=== PATIENT | female | born 1950 | race Caucasian/White ===

== ENCOUNTER 2017-06-26 14:43 | Emergency (ER) | payer OTHER, SELFPAY ==
[~2017-06-26] VITALS: Ht 165.1 cm; Wt 64.9 kg
[2017-06-26] MEDS ORDERED: CHEMO MED (15:27)
[2017-06-26] MEDS ORDERED: [UNRECOGNIZED DRUG - OTHER] (15:27)
[2017-06-26] MEDS ORDERED: XARELTO15 MG PO (17:25)
== END 2017-06-26 17:40 | disposition home or self-care (01) ==
LOC: ER 14:43
DX: I82.C11 Acute embolism and thrombosis of right internal jugular vein (principal); Z88.0 Allergy status to penicillin; Z79.899 Other long term (current) drug therapy; Z85.3 Personal history of malignant neoplasm of breast
CPT/HCPCS: 93971; 99284

== ENCOUNTER → 2024-07-14 | Outpatient (CLI) | payer OTHER ==
[~2024-07-14] MED LIST: CHEMO MED; XARELTO15 MG PO; [UNRECOGNIZED DRUG - OTHER]
[2024-07-15 12:27] LABS: Albumin, Blood 3.9 g/dL (3.4-5.0); Albumin/Globulin Ratio 1.2 (0.8-1.8); Bilirubin, Total 0.3 mg/dL (0.1-1.0); Bun/Creatinine Ratio 27.6 (12.0-20.0); Calcium, Blood 9.5 mg/dL (8.5-10.1); Creatinine, Blood 0.72 mg/dL (0.40-1.00); Globulin, Blood 3.3 g/dL (2.2-4.0); Potassium, Blood 4.2 mmol/L (3.5-5.5); Total Protein, Blood 7.2 g/dL (6.4-8.2)
== END | disposition home or self-care (01) ==
LOC: LAB 16:15 → LAB SHORT 16:15
DX: Z51.81 Encounter for therapeutic drug level monitoring (principal); Z79.899 Other long term (current) drug therapy
CPT/HCPCS: 80053; 82306; 82607; 82746

== ENCOUNTER 2025-03-18 15:02 | Emergency (ER) | payer OTHER ==
[~2025-03-18] VITALS: Ht 165.1 cm; Wt 72.6 kg
[2025-03-18] MEDS ORDERED: Ketorolac Tromethamine 15mg Vial IV ONE (19:15)
[2025-03-18] MEDS ORDERED: TRAM50 PO (19:35)
[2025-03-18 19:40] VITALS: BP 132/79
== END 2025-03-18 19:55 | disposition home or self-care (01) ==
LOC: ER 15:02
DX: S52.202A Unspecified fracture of shaft of left ulna, initial encounter for closed fracture (principal); S52.022A Displaced fracture of olecranon process without intraarticular extension of left ulna, initial encounter for closed fracture; W01.0XXA Fall on same level from slipping, tripping and stumbling without subsequent striking against object, initial encounter; Z88.0 Allergy status to penicillin; Z79.899 Other long term (current) drug therapy
CPT/HCPCS: 29105; 70450; 71046; 73080; 96374-59; 99284-25; J1885

== ENCOUNTER 2025-03-26 12:09 | Day surgery (SDC) | payer OTHER ==
[2025-03-26] VITALS (11 sets, daily range): BP systolic 100–147; BP diastolic 48–87
[~2025-03-26] VITALS: Ht 165.1 cm; Wt 71.3 kg
[~2025-03-26 12:09] MED LIST changes: +CeFAZolin Sodium 2,000 MG in NS 100 ML IV SCH; +TRAM50 PO
[2025-03-26] MEDS ORDERED: Bupivacaine 0.5% Inj 50 ML Vial ONE (12:56)
[2025-03-26] MEDS ORDERED: FentaNYL Citrate 50 MCG/ML 5 ML Injection ONE (13:02)
[2025-03-26] MEDS ORDERED: FentaNYL Citrate 50 MCG/ML 2 ML Injection ONE ×3 (13:03→15:12)
--- NOTE | 2025-03-26 13:05 | NUR ---
Wheelchaired into [facility]. History, Chart, Medications and Allergies reviewed before start of procedure. Pre-Op teaching done. Pt verbalizes understanding. Patient States Post-Procedure ride home has been arranged.
[2025-03-26] MEDS ORDERED: Ondansetron HCl 2 MG / ML 2ML Vial ONE (13:24)
[2025-03-26] MEDS ORDERED: Metoclopramide HCl 5MG / ML 2ML Vial ONE (13:24)
[2025-03-26] MEDS ORDERED: Ondansetron HCl 2 MG / ML 2ML Vial IV PRN (15:20)
[2025-03-26] MEDS ORDERED: Metoclopramide HCl 5MG / ML 2ML Vial IV PRN (15:25)
[2025-03-26] MEDS ORDERED: Morphine Sulfate 4 MG/1 ML Injection IV PRN (15:25)
[2025-03-26] MEDS ORDERED: HYDROmorphone HCl/Pf 1MG SYR IV PRN (15:25)
[2025-03-26] MEDS ORDERED: FentaNYL Citrate 50 MCG/ML 2 ML Injection IV PRN ×2 (15:25→15:30)
[2025-03-26] MEDS ORDERED: OxyCODONE 5 mg/Acetamin 325 mg TABLET PO ONE (16:40)
--- NOTE | 2025-03-26 18:03 | NUR ---
TO STEP POST ORIF ULNA. FADIA WRAP CDI. POSITIVE ROM TO LEFT EXTREM, WARN. REPORTS 7/10 PAIN, WILL MEDICATE ORDERED. KEYSHAWN PO WELL. FAMILY AT BEDSIDE. VERBALIZED UNDERSTANDING OF DC INSTRUCTIONS. DENIES NAUSEA, SOB. 1 PERCOCET GIVEN ORDERED WITH GOOD EFFECT. DC'D IV INTACT. DC'D VIA WC TO PRIVATE CAR WITH INSIDE SALES EXECUTIVE.
== END 2025-03-26 17:45 | disposition home or self-care (01) ==
LOC: ORSCMMR 12:09 → ORD 13:30 → ORSCMMR 17:45
PROVIDERS: Orthopaedic Surgery
PROC: 0PSL04Z Reposition Left Ulna with Internal Fixation Device, Open Approach (ICD-10-PCS; principal; 2025-03-26 12:30)
PROC: 01N40ZZ Release Ulnar Nerve, Open Approach (ICD-10-PCS; principal; 2025-03-26 12:30)
DX: S52.045A Nondisplaced fracture of coronoid process of left ulna, initial encounter for closed fracture (principal); W18.09XA Striking against other object with subsequent fall, initial encounter; Z86.718 Personal history of other venous thrombosis and embolism; Z85.828 Personal history of other malignant neoplasm of skin
CPT/HCPCS: A9270; C1713; J0690; J2270; J2405; J2704; J2765; J3010; J7120